=== PATIENT | male | born 1985 | race African-American/Black ===

== ENCOUNTER 2019-12-07 10:46 | Emergency (ER) | payer OTHER | END 2019-12-07 11:41 | disposition left against medical advice (07) | LOC: ERS 10:46 | DX: Z53.21 Procedure and treatment not carried out due to patient leaving prior to being seen by health care provider (principal) ==

== ENCOUNTER 2021-01-08 12:20 | Outpatient (CLI) | payer OTHER | END 2021-01-08 12:21 | disposition home or self-care (01) | LOC: BICRAD 12:20 | PROVIDERS: ATTEND Family Medicine | DX: S20.211A Contusion of right front wall of thorax, initial encounter (principal) ==

== ENCOUNTER 2022-08-15 17:05 | Outpatient (CLI) | payer OTHER | END 2022-08-15 17:06 | disposition home or self-care (01) | LOC: SCSRAD 17:05 | PROVIDERS: ATTEND Nurse Practitioner Family | DX: M79.641 Pain in right hand (principal); S62.336A Displaced fracture of neck of fifth metacarpal bone, right hand, initial encounter for closed fracture ==